=== PATIENT | female | born 1990 | race Asian ===

== ENCOUNTER → 2018-10-06 | Outpatient (CLI) | payer OTHER ==
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
== END | disposition home or self-care (01) ==
LOC: HKI 10:03
PROVIDERS: ATTEND Orthopaedic Surgery Adult Reconstructive Orthopaedic Surgery
DX: M25.561 Pain in right knee (principal)
CPT/HCPCS: G0463